=== PATIENT | female | born 1985 | race Caucasian/White ===

== ENCOUNTER 2018-08-29 17:26 | Emergency (ER) | payer BC, MEDICAID ==
[2018-08-29 18:02] VITALS: BP 90/54
--- NOTE | 2018-08-29 18:08 | UC ---
Lower Extremity/Ankle HPI - HPI Summary HPI Summary: 32 yo female presents accompanied by her mother. Pt is nonverbal and the history is provided by the mother. Mom tells me that 2 days ago she noticed some redness and swelling to pt's left foot. Pt will pull the foot away if touched. Mom is worried that during wheelchair transfers pt may have hit her foot against something - she is concerned about a fracture. - History of Current Complaint Chief Complaint: UCLowerExtremity Stated Complaint: L FOOT IS SWOLLEN AND SORE Time Seen by Provider: 08/29/18 18:08 Hx Obtained From: Family/Financial Secretary - Allergies/Home Medications Allergies/Adverse Reactions: Allergies Allergy/AdvReac Type Severity Reaction Status Date / Time No Known Allergies Allergy Verified 08/29/18 17:51 Home Medications: Home Medications lamoTRIgine 200 mg PO BID 08/29/18 [History Confirmed 08/29/18] levETIRAcetam LIQ* [Keppra LIQ*] 1,000 mg PO BID 08/29/18 [History Confirmed 10/06] tiZANidine TAB* [Zanaflex TAB*] 2 mg PO DAILY 08/29/18 [History Confirmed ] PMH/Surg Hx/FS Hx/Imm Hx - Additional Past Medical History Additional PMH: Seizures Mentally challenged - Surgical History Surgical History: Yes Surgery Procedure, Year, and Place: gtube - Family History Known Family History: Positive: None - Social History Occupation: Disabled Lives: Assisted Living Alcohol Use: None Substance Use Type: None Smoking Status (MU): Never Smoked Tobacco Review of Systems Constitutional: Negative Skin: Other - Redness and swelling left foot Respiratory: Negative Cardiovascular: Negative Neurovascular: Negative Musculoskeletal: Other: - Left foot pain Neurological: Negative Psychological: Negative All Other Systems Reviewed And Are Negative: Yes Physical Exam - Summary Physical Exam Summary: Exam limited due to pt's condition. GENERAL: NAD. SKIN: LEFT FOOT: Dorsal aspect as distal 2-3 MT with mild erythema, edema, and warmth. No open wound, abrasion, or ecchymosis. CHEST: No accessory muscle use. Breathing comfortably and in no distress. CV: Pulses intact. Cap refill <2seconds MSK: When the dorsal aspect of the left foot is palpated at the area of interest - the pt pulls her foot away. NEURO: Alert. PSYCH: Age appropriate behavior. Triage Information Reviewed: Yes Vital Signs: Initial Vital Signs Temp 99.2 F 08/29/18 17:55 Pulse 118 08/29/18 17:55 Resp 22 08/29/18 17:55 BP 90/54 08/29/18 17:55 Pulse Ox 93 08/29/18 17:55 Vital Signs Reviewed: Yes Lower Extremity Course/Dx - Course Course Of Treatment: I had a long discussion with the pt's mother that this appears more likely a cellulitis than a fx, however pt's mother is persisted that she is concerned about a fracture and would like an XR. An XR of the left foot was ordered - there is no radiologist reading after 1800, therefore wet read by myself is negative for fracture. I discussed the results with the mother and will tx pt with keflex for cellulitis. Regarding the pt's vital signs at this OV - mother states that this is pt's usual BP and her O2% ranges between 90% and 95% based on when pt was last suctioned. - Differential Dx/Diagnosis Provider Diagnoses: Left foot cellulitis Discharge - Sign-Out/Discharge Documenting (check all that apply): Patient Departure All imaging exams completed and their final reports reviewed: No - Discharge Plan Condition: Stable Disposition: HOME Prescriptions: Cephalexin SUSP* [Keflex SUSP 250 MG/5 ML*] 10 ml PO TID #210 ml Patient Education Materials: Cellulitis (DC) Referrals: Dominique Walters PA [Primary Care Provider] - Additional Instructions: If you develop a fever, shortness of breath, chest pain, new or worsening symptoms - please call your PCP or go to the ED. - Billing Disposition and Condition Condition: STABLE Disposition: Home
--- NOTE | 2018-08-30 08:02 | RAD ---
Indication: Left foot pain and swelling. 2 views of the left foot demonstrates osteopenia. No definite fracture is identified. No other bone or joint abnormality is identified. IMPRESSION: No fracture of the left foot is identified. Diffuse osteopenia is noted. R0
--- NOTE | 2018-08-30 09:51 | UC ---
- Progress Note Progress Note: Patient Name: JANETTE COLINDRES Medical Record#: [id number] Ordering Physician: Marvin MASTERS Acct.#: [id number] : 1985 Age: 32 Sex: F Location: [facility] - [place], [place] Exam Date: 08/29/181814 ADM Status: [facility] ER Order Information: FOOT LEFT 2 VWS Accession Number: [id number] CPT: 54394 Indication: Left foot pain and swelling. 2 views of the left foot demonstrates osteopenia. No definite fracture is identified. No other bone or joint abnormality is identified. IMPRESSION: No fracture of the left foot is identified. Diffuse osteopenia is noted. R0 <Electronically signed by Darlene Hoover MD in OV> 08/30/18758 Dictated By: Darlene Hoover MD Dictated Date/Time: 08/30/18758 Transcribed Date/Time: 08/30/18752 Copy to: CC:Dominique MASTERS; Marvin MASTERS; Topher Hudson MD Imaging - [facility] Imaging - [facility] [address] [address] ph ([phone]) ph ([phone]) ph ([phone]) This report is only to be considered final once signed by the Provider(s) as displayed in the "<Electronically Signed by >" field (s). Absence of a signature indicates the report is in a draft status and still needs to be finalized. In the event this document was created by someone other than the signing Provider, the individual initiating the document will be listed in the "Entered by:" or "Dictated by:" ross. 1 of 1 Discharge - Sign-Out/Discharge Documenting (check all that apply): Post-Discharge Follow Up All imaging exams completed and their final reports reviewed: Yes - Discharge Plan Condition: Stable Disposition: HOME Prescriptions: Cephalexin SUSP* [Keflex SUSP 250 MG/5 ML*] 10 ml PO TID #210 ml Patient Education Materials: Cellulitis (DC) Referrals: Dominique Walters PA [Primary Care Provider] - Additional Instructions: If you develop a fever, shortness of breath, chest pain, new or worsening symptoms - please call your PCP or go to the ED. - Billing Disposition and Condition Condition: STABLE Disposition: Home
== END 2018-08-29 19:51 | disposition home or self-care (01) ==
LOC: UCCORT 17:26
DX: L03.116 Cellulitis of left lower limb (principal)
CPT/HCPCS: 99212; G0463